=== PATIENT | male | born 1995 | race Caucasian/White ===

== ENCOUNTER 2022-02-13 15:57 | Emergency (ER) | payer SELFPAY ==
[2022-02-13 16:06] VITALS: BP 130/76; PULSE 75; RESP 16; TEMP 36.6; O2SAT 100
--- NOTE | 2022-02-13 16:07 | ED.URI ---
HPI - URI/Sore Throat General Chief Complaint: Upper Respiratory Infection Stated Complaint: runny nose cough congestion Time Seen by Provider: 02/13/22 16:07 Source: patient and RN notes reviewed History of Present Illness HPI Narrative: patient is a 26-year-old male who presents to urgent care with complaints of runny nose, congestion, cough and nasal drainage. Patient states that his son has the flu and was diagnosed Saturday. Patient started having symptoms Saturday night. States that he has been taking DayQuil and has had some relief. He is aware that he is likely positive for influenza A however he needs a work release. No other acute complaints. No acute distress noted. Patient aware of the plan of care. Some parts of this dictation were generated by voice recognition software and may contain typographical and/or grammatical inaccuracies. Related Data Home Medications Medication Instructions Recorded Confirmed No Home Medications 02/13/22 02/13/22 Allergies Allergy/AdvReac Type Severity Reaction Status Date / Time No Known Allergies Allergy Verified 02/13/22 16:19 Review of Systems Review of Systems: CONSTITUTIONAL: Denies fever, chills, or sweats. EYES: Denies visual changes, redness, or discharge. ENT: Reports of nasal congestion, drainage, rhinorrhea CARDIOVASCULAR: Denies chest pain, palpitations, or edema. RESPIRATORY: reports of cough without dyspnea GASTROINTESTINAL: Denies abdominal pain, nausea, vomiting, or diarrhea. GENITOURINARY: Denies dysuria or hematuria. SKIN: Denies rash or itching. MUSCULOSKELETAL: Denies back pain, joint pain, or myalgia. NEUROLOGIC: Denies headache, numbness, or weakness. All other systems reviewed are negative, except as documented in HPI. PMFSH Comments At the time of my signature, I reviewed and agree with the nursing past medical, surgical, social, and family history. There is no relevant family history pertinent to the patient complaint. Exam Narrative: GENERAL: This is a well-nourished, well-developed patient,. Appears fatigued HEAD: normocephalic, atraumatic. EYES: PERRL. Sclera clear/white. Vision is grossly intact. EARS: External ears normal, auditory canals clear and without drainage, mild bilateral station tube dysfunction.TMs normal without perforation. Hearing grossly intact. NOSE: External nose normal with no obvious nasal discharge, nares without redness, Clear to yellow rhinorrhea THROAT: Mucous membranes moist, posterior pharynx clear. moderate postnasal drainage NECK: Neck supple, non-tender without lymphadenopathy, masses or thyromegaly. CARDIOVASCULAR: Regular rate and rhythm without murmurs, gallops, or rubs. RESPIRATORY: Clear to auscultation. Breath sounds equal bilaterally. No wheezes, rales, or rhonchi. SKIN: warm, intact with no suspicious lesions or rash, good texture and turgor. NEURO: awake, alert, and oriented to person, place and time. There were no obvious focal neurologic abnormalities. EXTREMITIES: No clubbing, cyanosis, or edema. Course Course Level of Care: Express Care Visit Vital Signs Vital signs: Vital Signs Temperature 98 F 02/13/22 16:06 Pulse Rate 75 02/13/22 16:06 Respiratory Rate 16 02/13/22 16:06 Blood Pressure 130/76 02/13/22 16:06 Pulse Oximetry 100 02/13/22 16:06 Oxygen Delivery Room Air 02/13/22 16:06 Temperature 98 F 02/13/22 16:06 Pulse Rate 75 02/13/22 16:06 Respiratory Rate 16 02/13/22 16:06 Blood Pressure 130/76 02/13/22 16:06 Pulse Oximetry 100 02/13/22 16:06 Oxygen Delivery Room Air 02/13/22 16:06 reviewed MDM - URI/Sore Throat MDM Narrative Medical decision making narrative: advised patient to treat his symptoms with [id number] medications such as Claritin/ Zyrtec/ Benadryl and Tylenol/ ibuprofen as needed. Would recommend Flonase nasal spray for drainage and rhinorrhea. Increase water intake and rest. Use a humidifier at night.
== END 2022-02-13 16:25 | disposition home or self-care (01) ==
PROVIDERS: Emergency Provider Nurse Practitioner Family
DX: J11.1 Influenza due to unidentified influenza virus with other respiratory manifestations (principal)
CPT/HCPCS: 99211; G0463

== ENCOUNTER 2022-07-01 15:12 | Emergency (ER) | payer BC, SELFPAY ==
[2022-07-01 15:32] VITALS: BP 129/66; PULSE 86; RESP 20; TEMP 37.4; O2SAT 98
--- NOTE | 2022-07-01 16:06 | ED.GENADULT ---
HPI - General Adult General Chief complaint: Upper Respiratory Infection Stated complaint: sore throat Source: patient Mode of arrival: ambulatory Limitations: no limitations History of Present Illness HPI narrative: Patient presents for evaluation of sore throat for last 2 days. Symptoms have progressively worsened since the time of symptom onset. He did experience some hot flashes but denies any objective fever, chills, nausea, vomiting. He has a mild cough but denies any SOB. No recent sick contacts to his knowledge. He does smoke. He tried using some throat lozenges but has not tried any other therapies. Related Data Allergies Allergy/AdvReac Type Severity Reaction Status Date / Time No Known Allergies Allergy Verified 02/13/22 16:19 Review of Systems Review of Systems: CONSTITUTIONAL: Reports hot flashes. denies fever, chills, or sweats. EYES: Denies visual changes, redness, or discharge. ENT: Reports sore throat. Denies rhinorrhea, congestion, or otalgia. CARDIOVASCULAR: Denies chest pain, palpitations, or edema. RESPIRATORY:Reports cough. Denies dyspnea. GASTROINTESTINAL: Denies abdominal pain, nausea, vomiting, or diarrhea. GENITOURINARY: Denies dysuria or hematuria. SKIN: Denies rash or itching. MUSCULOSKELETAL: Denies back pain, joint pain, or myalgia. NEUROLOGIC: Denies headache, numbness, dizziness, or weakness. PSYCHIATRIC: Denies anxiety or depression. [facility] Past Medical History Medical History No pertinent past medical history Surgical History Surgical History No pertinent past surgical history Family History Family History Mother Family history non-contributory Social History Social History Smoking packs per day: 0.5 Smoking cigarettes per day: 10.0 Smoking status: Current every day smoker Living arrangements: with family Gender identity (if verbalized by the patient): Male Sexual Orientation (if Verbalized by the Patient): Straight or Heterosexual Spiritual care concerns: No Exam Narrative: GENERAL: Well-appearing, well-nourished, and in no acute distress. HEAD: Normocephalic, atraumatic. EYES: PERRLA and EOMI. ENT: Nares clear, no rhinorrhea or epistaxis. Mucous membranes moist. Bilateral tonsillar enlargement with erythema and white exudate. Uvula is midline. Bilateral TMs pearly cruz nonbulging NECK: Supple. No adenopathy or masses. No carotid bruits or JVD CHEST: Clear to auscultation. No respiratory distress. No wheezes rales or rhonchi HEART: Regular rate and rhythm. No murmur heard. Normal peripheral pulses. ABDOMEN: Soft, nontender, nondistended, normal active bowel sounds. EXTREMITIES: Normal range of motion. No edema. SKIN: Warm, dry, no rash. NEURO: No focal deficits. Alert and oriented x3. PSYCH: Normal mood and affect. Course Course Emergency Course: This is a 27-year-old male who presented for evaluation of sore throat. Rapid strep was negative. I have clinical suspicion that he does have strep so will treat with amoxicillin. Increase hydration. Follow up with primary provider. Rxtg-[id number] agents for symptom management. Go to the ER for difficulty breathing or swelling. Patient in agreement with plan of care. Level of Care: Express Care Visit Vital Signs Vital signs: Vital Signs Temperature 37.4 C 07/01/22 15:32 Pulse Rate 86 07/01/22 15:32 Respiratory Rate 20 07/01/22 15:32 Blood Pressure 129/66 07/01/22 15:32 Pulse Oximetry 98 07/01/22 15:32 Oxygen Delivery Room Air 07/01/22 15:32 Temperature 37.4 C 07/01/22 15:32 Pulse Rate 86 07/01/22 15:32 Respiratory Rate 20 07/01/22 15:32 Blood Pressure 129/66 07/01/22 15:32 Pulse Oximetry 98 07/01/22 15:32 Oxygen D
== END 2022-07-01 16:13 | disposition home or self-care (01) ==
PROVIDERS: Emergency Provider Nurse Practitioner
DX: J02.9 Acute pharyngitis, unspecified (principal); F17.210 Nicotine dependence, cigarettes, uncomplicated
CPT/HCPCS: 87081; 87880; 99213; G0463

== ENCOUNTER 2023-04-01 09:13 | Emergency (ER) | payer BC, SELFPAY ==
[2023-04-01 09:20] VITALS: BP 146/92; PULSE 79; RESP 20; TEMP 36.9; O2SAT 98
--- NOTE | 2023-04-01 09:34 | ED.URI ---
HPI - URI/Sore Throat General Chief Complaint: Upper Respiratory Infection Stated Complaint: body aches can't taste or smell Source: patient and RN notes reviewed Mode of arrival: ambulatory Limitations: no limitations History of Present Illness HPI Narrative: 27-year-old male presented for complaint body aches, loss of taste and smell. Onset 2 days. Denies shortness breath, wheezing, nausea, vomiting diarrhea, fevers or chills. Not taking anything for symptoms. MD elicited complaint: cough Related Data Allergies Allergy/AdvReac Type Severity Reaction Status Date / Time No Known Allergies Allergy Verified 02/13/22 16:19 Review of Systems Review of Systems: CONSTITUTIONAL: Denies malaise, chills, sweats, fever EYES: Denies visual changes, redness, or discharge ENT: Denies rhinorrhea, congestion, sinus pain, otalgia, sore throat CARDIOVASCULAR: Denies chest pain, palpitations, edema RESPIRATORY: Reports cough, post nasal drainage. Denies dyspnea GASTROINTESTINAL: Denies abdominal pain, nausea, vomiting, diarrhea SKIN: Denies rash or itching MUSCULOSKELETAL: Endorses myalgia NEUROLOGIC: Denies headache [facility] Past Medical History Medical History No pertinent past medical history Surgical History Surgical History No pertinent past surgical history Family History Family History Mother Family history non-contributory Social History Social History Smoking packs per day: 0.5 Smoking cigarettes per day: 10.0 Smoking status: Current every day smoker Living arrangements: with family Gender identity (if verbalized by the patient): Male Sexual Orientation (if Verbalized by the Patient): Straight or Heterosexual Spiritual care concerns: No Exam Narrative: GENERAL: well-appearing, nontoxic no acute distress. HEAD: Normocephalic EYES: PERRLA, conjunctivae clear ENT: Mucous membranes moist. TMs pearly cruz with dull light reflex bilaterally; no tragal tenderness. Oropharynx erythematous without lesions or exudate, no drooling, no hoarseness, no trismus, uvula midline. NECK: Supple. No lymphadenopathy CHEST: Clear to auscultation, breath sounds equal. No wheezing, rhonchi, rales, or stridor. No respiratory distress, speaks in full sentences. HEART: Regular rate and rhythm. No murmur heard. SKIN: Warm, dry, no rash. NEURO: Alert and oriented x3. PSYCH: Normal mood and affect Course Course Emergency Course: Patient is aware of diagnosis, understands and agrees to treatment plan. Anticipatory guidance given. Patient agrees to follow-up as directed and is aware of reasons to seek care at the emergency department. Portions of this record may have been created with voice recognition software Level of Care: Express Care Visit Vital Signs Vital signs: Vital Signs Temperature 98.4 F 04/01/23 09:20 Pulse Rate 79 04/01/23 09:20 Respiratory Rate 20 04/01/23 09:20 Blood Pressure 146/92 H 04/01/23 09:20 Pulse Oximetry 98 04/01/23 09:20 Oxygen Delivery Room Air 04/01/23 09:20 Temperature 98.4 F 04/01/23 09:20 Pulse Rate 79 04/01/23 09:20 Respiratory Rate 20 04/01/23 09:20 Blood Pressure 146/92 H 04/01/23 09:20 Pulse Oximetry 98 04/01/23 09:20 Oxygen Delivery Room Air 04/01/23 09:20 reviewed MDM - URI/Sore Throat MDM Narrative Medical decision making narrative: COVID positive. Results reviewed with patient. Discussed physical exam findings. Advised supportive measures and signs/symptoms to go to the ER. Pt is appropriate for outpt treatment and f/u. Differential Diagnosis Differential diagnosis: Likely upper respiratory infection, sinusitis and viral infection Discharge Plan Discharge Clinical Impression: COVID-19 Patient
== END 2023-04-01 09:45 | disposition home or self-care (01) ==
PROVIDERS: Emergency Provider Nurse Practitioner Family
DX: U07.1 COVID-19 (principal); F17.210 Nicotine dependence, cigarettes, uncomplicated
CPT/HCPCS: 87426; 87804; 99213; C9803; G0463